=== PATIENT | male | born 1985 | race Caucasian/White ===

== ENCOUNTER 2023-11-23 09:08 | Emergency (ER) | payer OTHER ==
[2023-11-23 09:19] VITALS: BP 156/67; PULSE 70; RESP 20; TEMP 97.5
--- NOTE | 2023-11-23 09:27 | ED ---
SOB HPI - General Source: patient, EMS, RN notes reviewed Mode of arrival: ambulatory Limitations: no limitations <Suzanna Kumar - Last Filed: 11/23/23 09:24> <Ronel Reno - Last Filed: 11/23/23 18:33> - General Chief Complaint: Arrhythmia/Palpitations Stated Complaint: chest pain Time Seen by Provider: 11/23/23 09:24 - History of Present Illness Initial Comments: Quick Note: This is a 38-year-old male who presents to the emergency department for shortness of breath and palpitations. He has been at [facility] for 13 days for alcohol abuse. He finished Ativan 7 days ago and was started on Risperdal to help with his anxiety. States that over the last few days he has been feeling short of breath and his whole body is "numb". Believes that this may be a side effect of the Risperdal he was started on. He would like to get off of this, but states that he was not allowed to do so unless he came to the hospital and was given permission. (Suzanna Kumar) Max is a pleasant 38yo M Zentz to the emergency department today from [facility]. Patient reports that he was hospitalized at [facility] in [place] the weekend of November 09 through for alcohol intoxication and withdrawal. Patient states that upon discharge he was prescribed respite all and Zoloft. Patient left the hospital and went to [facility] where he began therapy. He was initially on benzos and barbiturates he is now off of those and patient states that he just feels like the medications he was prescribed the Risperdal and Zoloft are making him feel worse. He states on days where he does not take them until mid afternoon he feels better throughout the morning and then worse after taking them. He wanted to discontinue these however they are considered part of his treatment plan because they were prescribed prior to arrival at [facility] therefore discontinuing them would be noncompliance with treatment plan and grounds for expulsion from [facility]. Patient was told he had to have evaluation by To discontinue these medications. He was not on these medications prior to his hospitalization less than 2 weeks ago he has been taking his medications only 9 days. (Ronel Reno) - Related Data Home Medications Medication Instructions Recorded Confirmed Calcium Phos/D3/Magnesium/Zinc 1 tab PO TID PRN 11/23/23 11/23/23 [Eartfoe-Nbf-Kkhh-Vitamin D3] Chlorpheniramine Maleate 4 mg PO Q4H PRN 11/23/23 11/23/23 [Chlor-Trimeton] Ibuprofen [Motrin Ib] 200 mg PO Q6H PRN 11/23/23 11/23/23 Loperamide HCl [Imodium A-D] 4 mg PO QID PRN MDD 8 CAPLETS 11/23/23 11/23/23 Melatonin 10 mg PO HS 11/23/23 11/23/23 Metoprolol Succinate [Toprol XL] 50 mg PO DAILY 11/23/23 11/23/23 Multivitamins, Thera [Multivitamin 1 tab PO DAILY 11/23/23 11/23/23 (formulary)] Mylanta 30 ml PO Q4H PRN 11/23/23 11/23/23 Sertraline [Zoloft] 25 mg PO DAILY 11/23/23 11/23/23 Thiamine [Vitamin B-1] 100 mg PO DAILY 11/23/23 11/23/23 guaiFENesin SYRUP 100MG/5ML 200 mg PO Q4H PRN 11/23/23 11/23/23 [Robitussin] ondansetron HCL [Zofran] 8 mg PO Q6H PRN 11/23/23 11/23/23 risperiDONE [RisperDAL] 0.25 mg PO DAILY 11/23/23 11/23/23 Allergies Allergy/AdvReac Type Severity Reaction Status Date / Time tuberculin, purified protein AdvReac Swelling Verified 11/23/23 17:59 deriva Review of Systems ROS Other: All systems not noted in ROS Statement are negative. <Suzanna Kumar - Last Filed: 11/23/23 09:24> ROS Other: All systems not noted in ROS Statement are negative. <Ronel Reno - Last Filed: 11/23/23 18:33> ROS Statement: Those systems with pertinent positive or pertinent negative responses have been documented in the HPI. Past Medical History Additional Past Medical History / Comment(s): alcohol withdrawal seizures, liver cirrhosis History of Any Multi-Drug Resistant Organisms: None Reported Past Surgical History: No Surgical Hx Reported Past Psychological History: Anxiety Smoking Status: Current every day smoker Past Alcohol Use History: Abuse, Daily, Heavy Past Drug Use History: Marijuana <Suzanna Kumar - Last Filed: 11/23/23 09:24> General Exam Limitations: no limitations <Suzanna Kumar - Last Filed: 11/23/23 09:24> <Ronel Reno - Last Filed: 11/23/23 18:33> - General Exam Comments Initial Comments: Visual Physical Exam Vital signs reviewed General: Well-appearing, nontoxic, no acute distress. Head: Normocephalic, atraumatic Eyes: PERRLA, EOMI ENT: Airway patent Chest: Nonlabored breathing Skin: No visual rash, normal skin tone Neuro: Alert and oriented 3 Musculoskeletal: No gross abnormalities (Suzanna Kumar) Physical Exam GENERAL: Patient is well-developed and well-nourished. Patient is nontoxic and well-hydrated and is in no distress. HENT: Normocephalic, Atraumatic. EYES: PERRL, EOMI PULMONARY: Unlabored respirations. CARDIOVASCULAR: RRR Warm and well perfused extremities ABDOMEN: Non-distended SKIN: No rashes or bruising : Deferred NEUROLOGIC: Alert and oriented Normal speech Normal gait MUSCULOSKELETAL: Moving all extremities with no apparent injury PSYCHIATRIC: No SI/HI (Ronel Reno) Course Vital Signs 11/23/23 09:13 Temperature 97.5 F L Pulse Rate 70 Respiratory 20 Rate Blood Pressure 156/67 O2 Sat by Pulse 98 Oximetry Medical Decision Making <Suzanna Kmuar - Last Filed: 11/23/23 09:24> <Ronel Reno - Last Filed: 11/23/23 18:33> - Medical Decision Making I performed the QuickNote portion of this chart. Signed Suzanna Kumar PA-C. (Suzanna Kumar) Was pt. sent in by a medical professional or institution ([facility], [employer], urgent care, hospital, or [facility]...) When possible be specific @ -[Yes, sent from [facility] did you speak to anyone other than the patient for history (EMS, parent, family, police, friend...)? What history was obtained from this source @ -No Did you review nursing and triage notes (agree or disagree)? Why? @ -I reviewed and agree with nursing and triage notes Were old charts reviewed (outside hosp., previous admission, EMS record, old EKG, old radiological studies, urgent care reports/EKG's, [facility] records)? Report findings @ -No old charts were reviewed Differential Diagnosis (chest pain, altered mental status, abdominal pain women, abdominal pain men, vaginal bleeding, weakness, fever, dyspnea, syncope, headache, dizziness, GI bleed, back pain, seizure, CVA, palpatations, mental health)? @ -Differential Mental Health Depression, anxiety, bipolar, psychosis, schizophrenia, borderline personality, situational depression, adjustment disorder, behavioral disorder, brain tumor, malingering, substance abuse, encephalopathy, medication reaction, dementia, hypothyroidism, degenerative neurologic disorder, lupus.... This is not meant to be all-inclusive list EKG interpreted by me (3pts min.). @ -As above X-rays interpreted by me (1pt min.). @ -None done CT interpreted by me (1pt min.). @ -None done U/S interpreted by me (1pt. min.). @ -None done What testing was considered but not performed or refused? (CT, X-rays, U/S, labs)? Why? @ -None What meds were considered but not given or refused? Why? @ -None Did you discuss the management of the patient with other professionals (professionals i.e. , PA, INS[employer], lab, RT, psych nurse, social group worker, iron worker apprentice, teacher, penal officer, child support case officer)? Give summary @ -Discussed with psychiatric services nurse Was smoking cessation discussed for >3mins.? @ -No Was critical care preformed (if so, how long)? @ -No Were there social determinants of health that impacted care today? How? (Homeles sness, low income, unemployed, alcoholism, drug addiction, transportation, low edu. Level, literacy, decrease access to med. care, usp, rehab)? @ -Alcoholism Was there de-escalation of care discussed even if they declined (Discuss DNR or withdrawal of care, Hospice)? DNR status @ -No What co-morbidities impacted this encounter? (DM, HTN, Smoking, COPD, CAD, Cancer, CVA, ARF, Chemo, Hep., AIDS, mental health diagnosis, sleep apnea, morbid obesity)? @ -None Was patient admitted / discharged? Hospital course, mention meds given and route, prescriptions, significant lab abnormalities, going to OR and other pertinent info. @ -Discharged The patient was seen and evaluated, patient with 2 complaints possible panic attack today as well as medication concerns. Patient was given p.o. Ativan for his possible panic attack and reported feeling much better. We discussed the patient's medications psychiatric services nurse came and evaluated the patient discussed his medications does feel given the short duration of very low dose of these medications it would be safe for the patient to discontinue them as he is seeming to have negative side effects. Physician and counselors at [facility] can make further recommendations on new medications to try patient mentioned that he was told they may trial BuSpar which she is agreeable with. At this time patient is awake alert oriented stable for discharge home with outpatient follow-up. Patient will be discharged back to [facility]. Undiagnosed new problem with uncertain prognosis? @ -No Drug Therapy requiring intensive monitoring for toxicity (Heparin, Nitro, Insulin, Cardizem)? @ -No Were any procedures done? @ -No Diagnosis/symptom? @ -Generalized anxiety, medication reaction Acute, or Chronic, or Acute on Chronic? @ -Acute Uncomplicated (without systemic symptoms) or Complicated (systemic symptoms)? @ -Default Side effects of treatment? @ -No Exacerbation, Progression, or Severe Exacerbation? @ -No Poses a threat to life or bodily function? How? (Chest pain, USA, MS, pneumonia, PE, COPD, DKA, ARF, appy, cholecystitis, CVA, Diverticulitis, Homicidal, Suicidal, threat to staff... and all critical care pts) @ -No (Ronel Reno) - Lab Data Lab Results 11/23/23 Range/Units 09:34 Urine Opiates Screen Not Detected (NotDetected) Ur Oxycodone Screen Not Detected (NotDetected) Urine Methadone Screen Not Detected (NotDetected) Ur Barbiturates Screen Detected H (NotDetected) U Tricyclic Antidepress Not Detected (NotDetected) Ur Phencyclidine Scrn Not Detected (NotDetected) Ur Amphetamines Screen Not Detected (NotDetected) U Methamphetamines Scrn Not Detected (NotDetected) U Benzodiazepines Scrn Not Detected (NotDetected) Urine Cocaine Screen Not Detected (NotDetected) U Marijuana (THC) Screen Not Detected (NotDetected) Disposition <Suzanna Kumar - Last Filed: 11/23/23 09:24> Is patient prescribed a controlled substance at d/c from ED?: No <Ronel Reno - Last Filed: 11/23/23 18:33> Clinical Impression: Anxiety Disposition: HOME SELF-CARE Condition: Stable Additional Instructions: Ok to discontinue Risperidone and Sertraline Referrals: None,Stated [Primary Care Provider] - 1-2 days
--- NOTE | 2023-11-23 09:46 | XR ---
EXAMINATION TYPE: XR chest 2V DATE OF EXAM: 11/23/2023 COMPARISON: NONE HISTORY: Chest pain TECHNIQUE: Frontal and lateral views of the chest are obtained. FINDINGS: There is no focal air space opacity. No evidence for pneumothorax. No pleural effusion. The cardiac silhouette size is within normal limits. The osseous structures are grossly intact. IMPRESSION: 1. No acute cardiopulmonary process.
[2023-11-23 09:53] LABS: Amphetamine Screen,Urine Not Detected (NotDetected); Barbiturate Screen,Urine Detected (NotDetected); Benzodiazepines Screen,Urine Not Detected (NotDetected); Cocaine Screen,Urine Not Detected (NotDetected); Methadone Screen, Urine Not Detected (NotDetected); Opiate Screen,Urine Not Detected (NotDetected); Oxycodone Screen, Urine Not Detected (NotDetected); Phencyclidine Screen,Urine Not Detected (NotDetected); Tricyclic Antidepressant,Urine Not Detected (NotDetected); Urn Cannabinoid Scrn Not Detected (NotDetected)
[2023-11-23] MEDS: LORazepam 1 MG TAB PO STA (17:26)
== END 2023-11-23 19:42 | disposition home or self-care (01) ==
LOC: EC 09:08
DX: F41.9 Anxiety disorder, unspecified (principal); F17.200 Nicotine dependence, unspecified, uncomplicated; Z88.8 Allergy status to other drugs, medicaments and biological substances
CPT/HCPCS: 71046; 80306; 93005; 99285